=== PATIENT | male | born 1940 | race Caucasian/White ===

== ENCOUNTER 2017-08-08 08:53 | Inpatient (IN) | payer OTHER ==
[~2017-08-08] VITALS: Ht 177.8 cm; Wt 75.3 kg
[2017-08-08 09:13] VITALS: BP 196/104
[2017-08-08] MEDS ORDERED: ALLOPURINOL 10100 M1 PO (09:16)
[2017-08-08] MEDS ORDERED: TOPROL XL100 MG PO (09:16)
[2017-08-08] MEDS ORDERED: ANTIVERT25 MG PO (09:16)
[2017-08-08 09:27] LABS: HEMATOCRIT 38.4 % (42.0-52.0); MCH 32.6 pg (26.0-34.0); MCHC 33.8 g/dL (28.0-37.0); MCV 96.6 fL (80.0-100.0); MPV 6.7 fl. (7.2-11.1); NUCLEATED RBCS 0 /100WBC; PLATELET COUNT* 276 thou/uL (150-400); RBC 3.97 mil/uL (4.50-6.00); RDW-CV 13.5 % (10.5-14.5); WBC 11.5 thou/uL (4.0-11.0)
[2017-08-08 09:35] LABS: ANION GAP 10 mmol/L (7-16); BUN 10 mg/dL (7-18); CALCIUM 9.2 mg/dL (8.5-10.1); CHLORIDE 95 mmol/L (98-107); CO2 26 mmol/L (21-32); CREATININE 1.1 mg/dL (0.6-1.3); GLUCOSE 116 mg/dL (70-99); POTASSIUM 3.3 mmol/L (3.5-5.1); SODIUM 131 mmol/L (136-145)
[2017-08-08 09:36] LABS: APTT 26.4 Seconds (25.0-31.3); PROTIME 10.1 Seconds (9.20-11.50)
[2017-08-08 09:49] LABS: ABSOLUTE MONOCYTES 0.5 thou/uL (0.0-1.2)
[2017-08-08 09:50] LABS: PLATELET ESTIMATE ADEQUATE
[2017-08-08 09:55] LABS: ALBUMIN 3.9 g/dL (3.4-5.0); ALKALINE PHOSPHATASE 64 U/L (46-116); CK-MB MASS 8.1 ng/mL (<0.5-3.6); NT-PRO BRAIN NAT PEPTIDE 129 pg/mL (<300); SGOT 49 U/L (15-37); SGPT 35 U/L (30-65); TOTAL BILIRUBIN 0.5 mg/dL (<0.1-1.0); TROPONIN-I LEVEL <0.06 ng/mL (<0.06)
[2017-08-08] MEDS ORDERED: FLOMAX0.4 MG PO (10:04)
[2017-08-08] MEDS ORDERED: TRAZODONE HCL50 MG PO (10:05)
[2017-08-08] MEDS ORDERED: ZYLOPRIM300 MG PO (10:06)
[2017-08-08] MEDS ORDERED: PROAIR HFA8.5 GM INH (10:07)
[2017-08-08 12:09] LABS: ACETEST (KETONE CONFIRMATORY) Large (Negative); URINE BILIRUBIN NEGATIVE (Negative); URINE BLOOD TRACE (Negative); URINE CLARITY CLEAR; URINE COLOR YELLOW; URINE GLUCOSE-RANDOM NEGATIVE (Negative); URINE KETONES 3+ (Negative); URINE LEUKOCYTES-REFLEX NEGATIVE (Negative); URINE NITRITE-REFLEX NEGATIVE (Negative); URINE PROTEIN TRACE (Negative); URINE SPECIFIC GRAVITY 1.015 (1.005-1.030); URINE UROBILINOGEN 0.2 E.U./dl (0.2-1.0)
[2017-08-08 12:16] LABS: AMP/METHAMP Negative (Negative); BARBITURATES Negative (Negative); BENZODIAZEPINES POSITIVE (Negative); COCAINE Negative (Negative); METHADONE Negative (Negative); OPIATES Negative (Negative); PCP Negative (Negative); THC POSITIVE (Negative)
[2017-08-08 12:31] LABS: CALCIUM 9.1 mg/dL (8.5-10.1); CREATININE 1.1 mg/dL (0.6-1.3); MAGNESIUM 1.8 mg/dL (1.8-2.4); POTASSIUM 3.4 mmol/L (3.5-5.1)
[2017-08-08 13:19] VITALS: BP 141/60
[2017-08-08 14:00] VITALS: BP 144/99
[2017-08-08 15:28] VITALS: BP 140/84
[2017-08-08 19:40] VITALS: BP 156/98
[2017-08-09] VITALS: BP 169/99
[2017-08-09 04:00] VITALS: BP 154/97
[2017-08-09 05:01] LABS: HEMATOCRIT 39.4 % (42.0-52.0); HEMOGLOBIN 13.4 gm/dL (14.0-18.0); MPV 7.1 fl. (7.2-11.1); RBC 4.06 mil/uL (4.50-6.00); RDW-CV 12.9 % (10.5-14.5); WBC 11.2 thou/uL (4.0-11.0)
[2017-08-09 05:18] LABS: CALCIUM 9.1 mg/dL (8.5-10.1); MAGNESIUM 1.9 mg/dL (1.8-2.4); POTASSIUM 4.1 mmol/L (3.5-5.1)
[2017-08-09 08:00] VITALS: BP 160/99
--- NOTE | 2017-08-09 10:10 | EKG ---
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: [place] : 1940 Requested By: Randy Casarez Order Number: [id number] MD: Luan Harvey Measurements Intervals [place] Rate: 119 P: 93 MN: 159 QRS: -15 QRSD: 88 T: 105 QT: 323 QTc: 455 Interpretive Statements Sinus tachycardia right axis Borderline left axis deviation Low voltage, extremity leads Nonspecific T abnormalities, lateral leads No previous ECG available for comparison Electronically Signed On 08-09-2017 10:10:29 CDT by Luan Harvey [email or web address] <ELECTRONICALLY SIGNED> By: Luan Harvey MD, [facility] 08/09/17 1010 6 6 Luan Harvey MD, [facility] /EPI
[2017-08-09 12:00] VITALS: BP 146/92
[2017-08-09 16:00] VITALS: BP 161/95
[2017-08-09 16:07] LABS: HIV-1/HIV-2 ANTIBODY Non Reactive (Non Reactive)
[2017-08-10] VITALS: BP 164/77
[2017-08-10 04:00] VITALS: BP 140/85
[2017-08-10 11:20] VITALS: BP 146/86
[2017-08-10 16:50] VITALS: BP 121/90
[2017-08-11 00:05] VITALS: BP 130/86
[2017-08-11 08:35] VITALS: BP 131/95
[2017-08-11 13:40] LABS: CHOLESTEROL 150 mg/dL (<200); HDL CHOLESTEROL 68 mg/dL (>40); LDL CHOLESTEROL 69 mg/dL (<100); SERUM ASSESSMENT Clear; TC:HDL 2.2 Ratio (Not establshd); TRIGLYCERIDE 69 mg/dL (<150); VLDL 14 mg/dL (<40)
[2017-08-11 16:47] VITALS: BP 138/81
[2017-08-11 20:20] VITALS: BP 146/95
[2017-08-12 08:30] VITALS: BP 134/84
[2017-08-12 21:05] VITALS: BP 149/92
[2017-08-13 04:00] VITALS: BP 138/88
[2017-08-13 09:15] VITALS: BP 150/98
[2017-08-13 20:00] VITALS: BP 159/82
[2017-08-13 23:30] VITALS: BP 159/82
[2017-08-13 23:33] LABS: HEMATOCRIT 41.7 % (42.0-52.0); HEMOGLOBIN 14.2 gm/dL (14.0-18.0); MCH 32.8 pg (26.0-34.0); MCHC 33.9 g/dL (28.0-37.0); MCV 96.7 fL (80.0-100.0); MPV 7.2 fl. (7.2-11.1); RBC 4.32 mil/uL (4.50-6.00); RDW-CV 13.4 % (10.5-14.5); WBC 19.2 thou/uL (4.0-11.0)
[2017-08-13 23:42] LABS: CALCIUM 10.4 mg/dL (8.5-10.1); CREATININE 1.3 mg/dL (0.6-1.3); POTASSIUM 3.8 mmol/L (3.5-5.1)
[2017-08-13 23:56] LABS: ALBUMIN 3.8 g/dL (3.4-5.0); TOTAL BILIRUBIN 0.7 mg/dL (<0.1-1.0); TOTAL PROTEIN 6.9 g/dL (6.4-8.2)
[2017-08-14 08:00] VITALS: BP 153/76
[2017-08-14 09:19] LABS: ABSOLUTE BASOPHILS 0.1 thou/uL (0.0-0.2); ABSOLUTE MONOCYTES 1.1 thou/uL (0.0-1.2); BASOPHILS 0.5 %; HEMATOCRIT 39.6 % (42.0-52.0); HEMOGLOBIN 13.6 gm/dL (14.0-18.0); LYMPHOCYTES 6.5 %; MCH 33.2 pg (26.0-34.0); MCHC 34.3 g/dL (28.0-37.0); MCV 96.9 fL (80.0-100.0); MONOCYTES 7.4 %; NUCLEATED RBCS 0 /100WBC; PLATELET COUNT* 288 thou/uL (150-400); POLYS 85.6 %; RBC 4.09 mil/uL (4.50-6.00); RDW-CV 13.5 % (10.5-14.5); WBC 15.2 thou/uL (4.0-11.0)
[2017-08-14 09:20] LABS: CREATININE 1.1 mg/dL (0.6-1.3); POTASSIUM 3.7 mmol/L (3.5-5.1)
[2017-08-14 15:59] VITALS: BP 120/77
[2017-08-14 20:00] VITALS: BP 122/76
[2017-08-14 20:30] VITALS: BP 122/76
[2017-08-15 04:28] LABS: HEMATOCRIT 37.4 % (42.0-52.0); HEMOGLOBIN 12.5 gm/dL (14.0-18.0); MCH 32.5 pg (26.0-34.0); MCHC 33.4 g/dL (28.0-37.0); MCV 97.3 fL (80.0-100.0); MPV 7.5 fl. (7.2-11.1); NUCLEATED RBCS 0 /100WBC; PLATELET COUNT* 288 thou/uL (150-400); RBC 3.84 mil/uL (4.50-6.00); RDW-CV 13.5 % (10.5-14.5)
[2017-08-15 04:33] LABS: CREATININE 0.9 mg/dL (0.6-1.3); POTASSIUM 3.7 mmol/L (3.5-5.1)
[2017-08-15 05:00] VITALS: BP 123/77
[2017-08-15 06:36] LABS: ABSOLUTE LYMPHOCYTES 0.4 thou/uL (0.8-5.3); ABSOLUTE MONOCYTES 0.7 thou/uL (0.0-1.2); ABSOLUTE NEUTROPHILS 12.9 thou/uL (1.6-8.1); ANISOCYTOSIS 1+; PLATELET ESTIMATE ADEQUATE; POIKILOCYTOSIS 1+
[2017-08-15 08:00] VITALS: BP 150/85
[2017-08-15 15:40] VITALS: BP 150/85
[2017-08-16 04:21] VITALS: BP 141/77
[2017-08-16 04:38] LABS: ABSOLUTE LYMPHOCYTES 1.1 thou/uL (0.8-5.3); ABSOLUTE MONOCYTES 0.9 thou/uL (0.0-1.2); ABSOLUTE NEUTROPHILS 9.1 thou/uL (1.6-8.1); BASOPHILS 0.3 %; EOSINOPHILS 0.3 %; HEMATOCRIT 37.5 % (42.0-52.0); HEMOGLOBIN 12.7 gm/dL (14.0-18.0); LYMPHOCYTES 9.7 %; MCH 32.8 pg (26.0-34.0); MCHC 33.8 g/dL (28.0-37.0); MCV 97.2 fL (80.0-100.0); MONOCYTES 8.4 %; MPV 6.9 fl. (7.2-11.1); NUCLEATED RBCS 0 /100WBC; PLATELET COUNT* 281 thou/uL (150-400); POLYS 81.3 %; RBC 3.85 mil/uL (4.50-6.00); RDW-CV 13.3 % (10.5-14.5); WBC 11.2 thou/uL (4.0-11.0)
[2017-08-16 04:46] LABS: CALCIUM 9.4 mg/dL (8.5-10.1); CREATININE 0.9 mg/dL (0.6-1.3); POTASSIUM 4.1 mmol/L (3.5-5.1)
[2017-08-16 09:05] VITALS: BP 144/84
--- NOTE | 2017-08-16 15:52 | 2DMMODE ---
[place] [address] 2 D/M-MODE ECHOCARDIOGRAM Name: KATHRIN SOUZA Room: [address] IN [facility]#: [id number] Admission: 08/08/17 Attend Phys: Robert Crawford Discharge: Date of : 42 Date of Service: 08/12/17 1647 Report #: [id number] THIS REPORT FOR: //name// APPROVED REPORT Study performed: 08/12/2017 14:54:33 EXAM: Comprehensive 2D, Doppler, and color-flow Echocardiogram Patient Location: In-Patient Room #: [employer] Status: routine BSA: 1.93 HR: 120 bpm BP: 134/84 mmHg Rhythm: NSR Other Information Study Quality: Good Indications CVA/TIA Echo Enhancing Agent Indication: Rule out Shunt Agent(s) / Amount(s) Used: Agitated Saline 10 cc 2D Dimensions LVEF(%): 51.41 (>50%) IVSd: 13.22 (7-11mm) LVOT Diam: 22.54 (18-24mm) LVDd: 43.93 mm PWd: 11.23 (7-11mm) Ascending Ao: 31.00 (22-36mm) LVDs: 32.48 (25-40mm) Aortic Root: 33.34 mm Galvan's LVEF: 51.41 % Aortic Valve AoV Peak Trevin.: 1.53 m/s AO Peak Gr.: 9.34 mmHg LVOT Max P.04 mmHg AO Mean Gr.: 5.68 mmHg LVOT Mean P.10 mmHg LVOT Max V: 1.00 m/s AO V2 VTI: 25.47 cm LVOT Mean V: 0.67 m/s JD (VTI): 2.43 cm2 LVOT V1 VTI: 15.52 cm Mitral Valve E/A Ratio: 0.72 [place] [address] 2 D/M-MODE ECHOCARDIOGRAM Name: KATHRIN SOUZA Room: [address] IN ..#: [id number] Admission: 08/08/17 Attend Phys: Robert Crawford Discharge: Date of : 42 Date of Service: 08/12/17 1647 Report #: [id number] MV Decel. Time: 223.18 ms MV E Max Trevin.: 0.55 m/s MV PHT: 64.72 ms MVA (PHT): 3.40 cm2 TDI E/Lateral E': 5.50 E/Medial E': 6.11 Medial E' Trevin.: 0.09 m/s Lateral E' Trevin.: 0.10 m/s Pulmonary Valve PV Peak Trevin.: 1.07 m/s PV Peak Gr.: 4.60 mmHg Tricuspid Valve TR Peak Gr.: 29.32 mmHg RVSP: 34.00 mmHg Left Ventricle The left ventricle is normal size. There is normal LV segmental wall motion. Mild concentric left ventricular hypertrophy. Left ventricular systolic function is normal. The left ventricular ejection fraction is within the normal range. LVEF is 50-55%.. Grade I - abnormal relaxation pattern. Right Ventricle The right ventricle is normal size. The right ventricular systolic function is normal. Atria The left atrium size is normal. Interatrial septum is intact without evidence of ASD or PFO. The right atrium size is normal. Aortic Valve The Aortic valve is sclerotic. No aortic regurgitation is present. There is no aortic valvular stenosis. Mitral Valve The mitral valve is normal in structure. Trace mitral regurgitation. No evidence of mitral valve stenosis. Tricuspid Valve The tricuspid valve is normal in structure. Mild tricuspid regurgitation. The RVSP is 30-35 mmHg. Pulmonic Valve The pulmonary valve is normal in structure. There is no pulmonic [place] [address] 2 D/M-MODE ECHOCARDIOGRAM Name: KATHRIN SOUZA Room: [address] IN [facility]#: [id number] Admission: 08/08/17 Attend Phys: Robert Crawford Discharge: Date of : 42 Date of Service: 08/12/17 1647 Report #: [id number] Great Vessels The aortic root is normal in size. IVC is normal in size and collapses with >50% inspiration Pericardium There is no pericardial effusion. <Conclusion> Interatrial septum is intact without evidence of ASD or PFO. LVEF is 50-55%.. Mild concentric left ventricular hypertrophy. The Aortic valve is sclerotic. <ELECTRONICALLY SIGNED> By: Luan Harvey MD, [facility] 08/12/171646 46 46 Luan Harvey MD, FACC /INF
[2017-08-16 16:00] VITALS: BP 132/68
[2017-08-16 20:20] VITALS: BP 134/83
[2017-08-17 03:39] LABS: URINE BILIRUBIN NEGATIVE (Negative); URINE BLOOD NEGATIVE (Negative); URINE CLARITY CLEAR; URINE COLOR YELLOW; URINE GLUCOSE-RANDOM NEGATIVE (Negative); URINE KETONES NEGATIVE (Negative); URINE LEUKOCYTES-REFLEX 1+ (Negative); URINE NITRITE-REFLEX NEGATIVE (Negative); URINE PROTEIN NEGATIVE (Negative); URINE SPECIFIC GRAVITY <= 1.005 (1.005-1.030); URINE UROBILINOGEN 0.2 E.U./dl (0.2-1.0)
[2017-08-17 05:39] LABS: BACTERIA-REFLEX 1-9 Few /HPF (None Seen); CASTS None Seen /LPF (None Seen); CRYSTALS None Seen /LPF (None Seen); MUCUS 0-3 Light strn/LPF (None Seen); SQUAMOUS 0-3 Few /LPF (0-3); URINE RBC 0-2 Rare /HPF (0-2); URINE WBC-REFLEX 6-15 Few /HPF (0-5)
[2017-08-17 07:40] VITALS: BP 142/77
[2017-08-17 08:00] VITALS: BP 142/77
[2017-08-17 15:55] VITALS: BP 124/83
[2017-08-17 20:00] VITALS: BP 136/75
[2017-08-18 07:50] VITALS: BP 138/86
[2017-08-18 08:00] VITALS: BP 138/86
[2017-08-18 17:02] VITALS: BP 141/83
[2017-08-19 04:31] VITALS: BP 130/75
[2017-08-19 08:00] VITALS: BP 119/76
[2017-08-19 16:00] VITALS: BP 119/72
[2017-08-19 20:00] VITALS: BP 117/77
[2017-08-20 12:44] LABS: CALCIUM 10.6 mg/dL (8.5-10.1); POTASSIUM 4.3 mmol/L (3.5-5.1)
[2017-08-20 14:00] VITALS: BP 120/77
[2017-08-20 16:08] VITALS: BP 140/83
[2017-08-20 18:00] VITALS: BP 122/68
[2017-08-20 19:40] VITALS: BP 108/78
[2017-08-20 23:55] VITALS: BP 108/78
[2017-08-21 08:30] VITALS: BP 142/93
[2017-08-21 09:00] VITALS: BP 142/93
[2017-08-21 12:00] VITALS: BP 132/80
[2017-08-21 16:00] VITALS: BP 130/80; BP 136/77
[2017-08-21 20:00] VITALS: BP 108/61
[2017-08-22 05:11] LABS: HEMATOCRIT 37.6 % (42.0-52.0); HEMOGLOBIN 13.1 gm/dL (14.0-18.0); MCH 33.4 pg (26.0-34.0); MCHC 34.7 g/dL (28.0-37.0); MCV 96.2 fL (80.0-100.0); MPV 6.9 fl. (7.2-11.1); RBC 3.91 mil/uL (4.50-6.00); RDW-CV 13.2 % (10.5-14.5); WBC 7.2 thou/uL (4.0-11.0)
[2017-08-22 05:21] LABS: CALCIUM 9.6 mg/dL (8.5-10.1); MAGNESIUM 1.9 mg/dL (1.8-2.4); POTASSIUM 4.8 mmol/L (3.5-5.1)
[2017-08-22 08:30] VITALS: BP 128/78
[2017-08-22 09:00] VITALS: BP 128/78
[2017-08-22 12:00] VITALS: BP 130/77
[2017-08-22 16:00] VITALS: BP 118/70; BP 121/88
[2017-08-22 21:10] VITALS: BP 138/83
[2017-08-23 08:05] VITALS: BP 127/75
[2017-08-23 16:00] VITALS: BP 131/73
[2017-08-23 20:00] VITALS: BP 134/65
[2017-08-23 20:20] VITALS: BP 134/65
[2017-08-24 07:45] VITALS: BP 114/75
[2017-08-24 13:23] VITALS: BP 114/75
== END 2017-08-24 14:30 | DRG 640 ==
LOC: M.ERS 08:53 → M.TBA-ER 10:32 → M.3W 10:32 → M.2W 10:32 → M.3W 08-10 16:30
PROVIDERS: Family Medicine; Internal Medicine; Psychiatry & Neurology Neuromuscular Medicine; ADMIT Family Medicine
DX: E51.2 Wernicke's encephalopathy (principal); G93.40 Encephalopathy, unspecified; E87.1 Hypo-osmolality and hyponatremia; F11.10 Opioid abuse, uncomplicated; I16.0 Hypertensive urgency; E87.6 Hypokalemia; N40.0 Benign prostatic hyperplasia without lower urinary tract symptoms; J45.909 Unspecified asthma, uncomplicated; M19.90 Unspecified osteoarthritis, unspecified site; F03.90 Unspecified dementia, unspecified severity, without behavioral disturbance, psychotic disturbance, mood disturbance, and anxiety; R63.4 Abnormal weight loss; E86.0 Dehydration; F12.10 Cannabis abuse, uncomplicated; Z68.23 Body mass index [BMI] 23.0-23.9, adult; Z86.73 Personal history of transient ischemic attack (TIA), and cerebral infarction without residual deficits; Z79.899 Other long term (current) drug therapy; Z88.6 Allergy status to analgesic agent; Z91.14 Patient's other noncompliance with medication regimen

== ENCOUNTER 2019-04-13 19:31 | Emergency (ER) | payer MEDICARE ==
[~2019-04-13] VITALS: Ht 177.8 cm; Wt 86.2 kg
[~2019-04-13 19:31] MED LIST: ALLOPURINOL 10100 M1 PO; ANTIVERT25 MG PO; FLOMAX0.4 MG PO; PROAIR HFA8.5 GM INH; TOPROL XL100 MG PO; TRAZODONE HCL50 MG PO; ZYLOPRIM300 MG PO
[2019-04-13] MEDS ORDERED: ROSUVASTATIN CA20 MG PO (19:55)
[2019-04-13 20:44] LABS: ABSOLUTE BASOPHILS 0.1 thou/uL (0.0-0.2); ABSOLUTE EOSINOPHILS 0.3 thou/uL (0.0-0.7); ABSOLUTE LYMPHOCYTES 2.1 thou/uL (0.8-5.3); ABSOLUTE MONOCYTES 0.5 thou/uL (0.0-1.2); BASOPHILS 0.9 %; EOSINOPHILS 3.7 %; HEMATOCRIT 39.2 % (42.0-52.0); HEMOGLOBIN 13.7 gm/dL (14.0-18.0); LYMPHOCYTES 26.6 %; MCH 34.5 pg (26.0-34.0); MCHC 34.9 g/dL (28.0-37.0); MONOCYTES 5.8 %; MPV 7.3 fl. (7.2-11.1); NUCLEATED RBCS 0 /100WBC; PLATELET COUNT* 236 thou/uL (150-400); RBC 3.96 mil/uL (4.50-6.00); RDW-CV 13.4 % (10.5-14.5); WBC 7.9 thou/uL (4.0-11.0)
[2019-04-13] MEDS ORDERED: KEFLEX500 M1 PO (20:53)
[2019-04-13 21:13] VITALS: BP 185/97
== END 2019-04-13 21:14 | disposition home or self-care (01) ==
LOC: M.ERS 19:31
PROVIDERS: Nurse Practitioner Family
DX: S51.812A Laceration without foreign body of left forearm, initial encounter (principal); S51.811A Laceration without foreign body of right forearm, initial encounter; I10 Essential (primary) hypertension; E78.00 Pure hypercholesterolemia, unspecified; J44.9 Chronic obstructive pulmonary disease, unspecified; Z88.5 Allergy status to narcotic agent; W01.198A Fall on same level from slipping, tripping and stumbling with subsequent striking against other object, initial encounter; Y92.89 Other specified places as the place of occurrence of the external cause; Y93.89 Activity, other specified; Y99.8 Other external cause status